=== PATIENT | male | born 1970 | race Caucasian/White ===

== ENCOUNTER 2025-03-03 10:57 | Emergency (ER) | payer BC, SELFPAY ==
--- NOTE | ~2025-03-03 | CT_ITS ---
EXAMINATION: CT ANGIOGRAM CHEST CT ANGIOGRAM ABDOMEN/PELVIS CLINICAL INFORMATION: Severe right upper quadrant abdominal pain, chest pain, shortness of breath and diaphoretic. COMPARISON: No prior. Correlation made with right upper quadrant abdomen ultrasound of same day. TECHNIQUE: Multiple axial images were obtained through the chest, abdomen, and pelvis after the administration of 100 mL of Omnipaque 350 intravenous contrast. Extensive vascular post-processing including two-dimensional and three-dimensional reformatted images were created and reviewed on an independent workstation. Multiplanar reformatted imaging was constructed from the axial data set. This CT examination was performed using dose optimization techniques as appropriate, variously including the following: *Automated exposure control *Adjustment of mA and/or kV according to patient size (this includes techniques or standardized protocols for targeted exams where dose is matched to indication/reason for exam; i.e. extremities or head) *Use of iterative reconstruction technique FINDINGS: CT ANGIOGRAM CHEST: VASCULAR: The thoracic aorta is normal in caliber and course. There is no acute aortic syndrome, or aneurysm. No significant atheromatous disease is present. Great vessels are patent bilaterally. There is a 2 vessel branching pattern. Normal enhancement of the pulmonary arteries. There is no PE. There is no right heart strain. The heart size is normal. There is no pericardial effusion. No significant coronary artery calcification is present. LUNGS: Lungs are clear bilaterally. There are no consolidations or abnormal opacities. There is no evidence of interstitial abnormality. Small airways are normal. Central airways are patent. There is no effusion or pneumothorax. MEDIASTINUM: Thyroid is partially imaged. There is a partially imaged 1.2 cm nodule in the right lobe. There is no lymphadenopathy or mass within the mediastinum. The esophagus has normal caliber and course. There is no mediastinal abnormality. CHEST WALL: There is no lymphadenopathy or mass. OSSEOUS STRUCTURES: There is no suspicious lytic or blastic bone lesion. Normal appearance. CT ANGIOGRAM ABDOMEN/PELVIS: VASCULAR: The abdominal aorta, and bilateral iliac arteries are normal in caliber and course. There is no aneurysm, dissection, or significant plaque is evident. There is no vascular stenosis or occlusion. The SMA is patent. The celiac axis is patent. Mild narrowing at the ostium without definite evidence of median arcuate ligament syndrome. The renal arteries are bilaterally patent. The inferior mesenteric artery is patent. The hypogastric arteries are patent bilaterally. The common femoral arteries are patent and normal bilaterally. LIVER, GALLBLADDER, AND BILIARY TREE: The liver is normal in size, shape, diffuse decreased attenuation consistent with fatty infiltration. No focal hepatic lesion or biliary ductal dilatation is present. The gallbladder is unremarkable with no evidence of radiopaque gallstones, gallbladder wall thickening, or obvious pericholecystic inflammatory changes. PANCREAS: Unremarkable. SPLEEN: Unremarkable. ADRENAL GLANDS: Unremarkable. KIDNEYS AND URETERS: Symmetric enhancement. The kidneys are normal in size, shape, and attenuation. No hydronephrosis, hydroureter, or calculi seen. No perinephric stranding. BLADDER: Unremarkable. GASTROINTESTINAL TRACT: The small and large bowel are unremarkable. The appendix is unremarkable. ABDOMINAL WALL: There is a small fat-containing right inguinal hernia. LYMPH NODES: No abnormal lymphadenopathy is present. PELVIC VISCERA: The prostate and seminal vesicles are unremarkable. OSSEOUS STRUCTURES: No suspicious lytic or blastic bone lesion. Normal appearance. CT/CT angio abdomen pelvis IMPRESSION: 1. Normal CT angiogram of the chest, abdomen and pelvis. There is no evidence of aortic aneurysm, acute aortic syndrome, arterial vascular stenosis or occlusion. There is no evidence of pulmonary embolism. 2. The lungs are clear without evidence of active disease. 3. Diffuse fatty infiltration of the liver. 4. Right thyroid nodule measuring 1.2 cm. 5. Remainder of the examination is normal. There is no definite imaging explanation for severe right upper quadrant pain. Electronically signed by: Arnulfo Lyn MD 03/03/2025 12:36 PM EDT
--- NOTE | ~2025-03-03 | US_ITS ---
EXAMINATION: US ABDOMEN LIMITED CLINICAL INFORMATION: Right upper quadrant pain. COMPARISON: None available. TECHNIQUE: Real-time imaging of the right upper quadrant abdominal viscera. FINDINGS: LIVER: Limited views of the liver demonstrate no abnormalities. GALLBLADDER: The gallbladder is physiologically distended without evidence of stones, sludge, polyps, wall thickening or pericholecystic fluid. US/US abdomen limited IMPRESSION: Limited ultrasound of the gallbladder only. No stones, wall thickening, or pericholecystic fluid is demonstrated. Electronically signed by: Ulises Swanson MD 03/03/2025 12:07 PM EDT
--- NOTE | 2025-03-03 11:05 | ECG_ITS ---
Test Reason : ABDOMINAL PAIN Blood Pressure : */* mmHG Vent. Rate : 75 BPM Atrial Rate : 75 BPM P-R Int : 172 ms QRS Dur : 112 ms QT Int : 370 ms P-R-T Axes : 39 -46 10 degrees QTcB Int : 413 ms Normal sinus rhythm Incomplete right bundle branch block Left anterior fascicular block Minimal voltage criteria for LVH, may be normal variant ( [place] product ) Abnormal ECG When compared with ECG of 29-Jun-2019 18:11, No significant change was found Referred By: Generic ED Physician Electronically Signed By: CHANCE PETERS
[2025-03-03 11:06] VITALS: BP 123/67; PULSE 72; RESP 22; TEMP 37.1; O2SAT 96; BMI 35.3
--- NOTE | 2025-03-03 11:18 | ED.GENADULT ---
HPI - General Adult General Chief complaint: Abdominal Pain Stated complaint: SEVERE UPPER RT ABD PAIN Time Seen by Provider: 03/03/25 11:01 Source: patient Mode of arrival: ambulatory Limitations: no limitations History of Present Illness ED Provider: APOLLO Strickland HPI narrative: 54-year-old male history of obesity, hyperlipidemia, atrial fibrillation, gastroparesis presents with severe right upper quadrant abdominal pain, stabbing pain, reports it started this morning. He has had pain like this before however not as severe. He reports pain is 8/10. He has sweating and diaphoretic due to pain. He does not feel well at all. He reports pain with deep breathing Denies nausea, vomiting, chest pain, headache, vision changes, dizziness, weakness. No recent illness. No sick contacts. Related Data Previous Rx's ?Medication ?Instructions ?Recorded ondansetron 4 mg disintegrating 4 mg PO Q6H PRN nausea and 03/03/25 tablet vomiting #14 tabs oxycodone 5 mg tablet 5 mg PO Q8H PRN pain #14 tabs 03/03/25 Allergies Allergy/AdvReac Type Severity Reaction Status Date / Time doxycycline (DOXYCYCLINE) Allergy Unknown STOMACH Verified 03/03/25 11:07 UPSET Review of Systems Review of Systems: Yes all other systems are reviewed and are negative [facility] Past Medical History Attestation statement: The following information was validated with the patient. Source: old records reviewed and nursing notes reviewed Social History Social History Smoked in Last 30 Days: No Use of substances other than those prescribed or required for medical reasons: No Advance Directives: No Advance Directives Information Provided: Yes Physical Exam ED Exam Exam: Appearance: Alert.? Oriented X3.+ appears extremely uncomfortable. Head: Normocephalic, atraumatic, no step-offs or deformities Eyes: Pupils equal, round and reactive to light.? Neck: Normal inspection.? Neck supple.? CVS: Normal heart rate and rhythm.? Pulses normal.? Respiratory: No respiratory distress.? Breath sounds normal.? Abdomen: Soft and+ tenderness to RUQ + murphys .? Skin: Skin warm and dry.? Normal skin color.? Normal skin turgor.? Extremities: No lower extremity edema.? No calf ttp. 5/5 strength to bilateral upper and lower extremities Neuro: Oriented X 3.? No motor deficit.? No sensory deficit. CN 2-12 intact Vital Signs: Vital Signs - 24 hr 03/03/25 16:58 Temperature 98.5 F Pulse Rate 70 Respiratory Rate 18 Blood Pressure 125/90 H Pulse Oximetry 95 Oxygen Delivery Method Room Air BMI result Body Mass Index 35.3 vss Course Reevaluation(s) Reevaluation #1: CBC unremarkable. Chemistry no acute findings needing acute intervention. Troponin negative. Lipase normal. Coags within normal limits. D-dimer negative. UA pending. Imaging pending Time: 12:32 Reevaluation #2: Repeat troponin negative. Patient not complaining of chest pain or shortness of breath. Still reporting mild right flank pain. CT a chest aorta with normal CT angiogram of the chest abdomen and pelvis. No evidence of aortic aneurysm, acute aortic syndrome. Arterial vascular stenosis or occlusion. There is no evidence of pulmonary embolism. The lungs are clear without evidence of active disease. Diffuse fatty infiltration of the liver. Right thyroid nodule measuring 1.2 cm. Remainder of the examination is normal. No definite imaging explanations for right upper quadrant pain. Abdominal ultrasound limited ultrasound of the gallbladder only no stones, wall thickening or pericholecystic fluid. UA clean Patient feeling better however still uncomfortable. I did have my attending Dr. Esqueda evaluate patient he thinks patient may have passed a kidney stone. Patient reports he is better he is no longer diaphoretic he is well appearing hemodynamically stable. Patient to be discharged home with oxycodone as well as Zofran. Educated patient on diagnosis and treatment plan, answered all question, patient verbalizes understanding. At this time patient will be discharged home, advised to return with new or worsening symptoms. Educated on worrisome signs and symptoms and when to return. At this time I feel comfortable discharge home. 03/03/2025 Dr. Esqueda's Attending Physician Note: HPI: 54-year-old male with a history of gastroparesis, atrial fibrillation, diabetes mellitus who presents emergency department for evaluation of right upper quadrant and right flank pain. Patient states at 06:20 hours he woke up with right upper quadrant pain he describes as a sharp pain. He states that the pain eventually resolved. 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 States the pain was 10/10 and felt similar to his kidney stone pain that he had in the past. Patient states that he had difficulty urinating but after urinating the pain did improve of persisted therefore came to the emergency department for evaluation. On presentation the patient stated his pain was 8/10, he appeared diaphoretic and unwell and he was brought back to the emergency department and evaluated by the physician critical care physician assistant Sasha Strickland. Exam: General: Awake, alert in no distress Head: Normocephalic, atraumatic EENT: PERRL, sclera and conjunctiva are normal, mouth with no erythema or exudates Neck: Supple, no adenopathy Lung: breath sounds symmetric, no wheezing, no rales and no rhonchi Chest: symmetric movement, nontender Heart: regular rate and rhythm, normal S1, S2 no murmurs or rubs Abdomen: soft, Mild to moderate right upper quadrant tenderness with a negative Urbano sign, no rebound, nondistended, normal bowel sounds Back: no vertebral tenderness, mild to moderate right CVA tenderness, no left CVA tenderness Extremities: no deformities, moves all extremities symmetrically, no edema Neuro: Awake, alert, oriented, normal speech, cranial nerves 2-12 intact, moves all extremities symmetrically Medical decision making: My independent interpretation the patient's laboratory evaluation is as follows: Normal CBC, normal PT/ INR and below detectable limits D-dimer. Glucose was elevated 129. liver tests were normal. Troponin was below detectable limits x2. urinalysis was positive for glucose only. Microscopic revealed 0-2 RBCs, 0-5 WBCs, no bacteria. CT angiogram chest, abdomen pelvis revealed no evidence for aortic aneurysm, dissection stenosis or occlusion. No pulmonary embolism. Right upper quadrant ultrasound revealed no gallbladder wall thickening, stones or pericholecystic fluid. The patient's negative workup is very reassuring. Based on the patient's clinical presentation, I suspect that he had a kidney stone that he passed and I did discuss this with the patient and the patient's significant other. The patient's pain significantly improved after treatment in the emergency department. He was advised to take Tylenol for pain. He was also prescribed oxycodone for pain not relieved by Tylenol and Zofran ODT for nausea and vomiting. He was given printed and verbal instructions and discharged home I, Dr. Rakesh Esqueda, personally evaluated the patient. I reviewed the APOLLO Strickland's documentation and I was available to supervise the management of the patient. I agree with the treatment and plan. Further, I agree with the controlled substance prescription as prescribed by APOLLO Strickland. My note reflects my personal findings on my history, exam and clinical impression. Time: 15:57 Medications Administered Discontinued Medications Generic Name Dose Route Start Last Admin Trade Name Alexa PRN Reason Stop Dose Admin Iohexol 100 ml 03/03/25 12:12 03/03/25 12:12 Iohexol 350 Mg/Ml 100 Ml Infus..Btl IV 03/03/25 12:13 100 ml ONCE ONE Administration Oxycodone HCl 5 mg 03/03/25 15:44 03/03/25 15:54 Oxycodone Hcl Immed Release 5 Mg Tablet PO 03/03/25 15:45 Not Given ONCE ONE Medical Decision Making Medical Decision Making [facility] Narrative: 1122 54 year old male presents w/ severe RUQ abd pain since this am PE TTP to right upper quadrant. / r lateral flank region. Patient appears diaphoretic, uncomfortable. Concerns for possible cholecystitis versus kidney stone. No peritonitic signs unlikely acute abdomen. Unlikely atypical presentation of ACS however will rule out. Less likely dissection however again will rule out. Will also rule out PE. Will rule out metabolic derangements, electrolyte abnormalities. Denies trauma therefore low suspicion for fractures, dislocations. No signs of pneumothorax. Plan labs, imaging, pain control Differential Diagnosis Differential Diagnoses: The differential diagnosis associated with the presentation includes (Concerns for possible cholecystitis versus kidney stone. No peritonitic signs unlikely acute abdomen. Unlikely atypical presentation of ACS however will rule out. Less likely dissection however again will rule out. Will also rule out PE. Will rule out metabolic derangements, electrolyte abnorma) Admission/Observation Consideration of admission/observation: Escalation of care including admission/observation considered Consult Healthcare Provider Management of the patient was discussed with: Transformer Repairer (Consulted cardiology) Cardiology Dr. Helton says aVL seems chronic, V2 looks new but there is no reciprocal change less likely [place] trend troponins. Lab Data [facility] Lab Attestation statement: I reviewed the patient's lab results. 03/03/25 11:25 03/03/25 11:25 Labs: Lab Results 03/03/25 03/03/25 03/03/25 Range/Units 11:25 11:31 13:13 WBC 8.2 (4.8-10.8) X10*3/uL RBC 5.27 (4.60-5.80) X10*6/uL Hgb 15.3 (14.0-18.0) g/dl Hct 45.5 (42.0-52.0) % MCV 86.3 (80.0-98.0) fL MCH 29.0 (27.0-33.0) pg MCHC 33.6 (31.0-36.0) g/dl RDW 13.5 (11.0-16.0) % Plt Count 259 (160-400) X10*3/uL MPV 10.1 (9.4-12.4) fL Immature Gran % (Auto) 0.2 (0.0-0.4) % Neut % (Auto) 61.8 (45-73) % Lymph % (Auto) 28.6 (20-40) % [place]offey % (Auto) 8.1 (2-11) % Eos % (Auto) 0.6 (0-4) % Baso % (Auto) 0.7 (0-2) % Lymph # (Auto) 2.3 (1.2-4.9) X10*3/uL [place]y # (Auto) 0.7 (0.1-1.2) X10*3/uL Eos # (Auto) 0.1 (0.0-0.4) X10*3/uL Baso # (Auto) 0.1 (0.0-0.2) X10*3/uL Abs Immat Gran (auto) 0.02 (0.00-0.03) X10*3/uL Absolute Neuts (auto) 5.1 (2.0-8.3) x10*3/uL Absolute Nucleated RBC 0.000 (0.0-0.012) X10*3/uL Nucleated RBC % (auto) 0.0 (0.0-0.2) /100WBC PT 11.3 (10.9-12.4) SEC INR 1.0 (0.9-1.1) D-Dimer High Sensitivty < 150 NG/ML Sodium 139 (135-145) mmol/L Potassium 3.9 (3.3-5.1) mmol/L Chloride 109 H (96-108) mmol/L Carbon Dioxide 24 (22-29) mmol/L Anion Gap 10 L (12-20) BUN 18 H (9-16) mg/dL Creatinine 0.85 (0.5-1.4) mg/dL Estim Creat Clear Calc 111.8 Estimated GFR > 60 POC Glucose 103 (60-115) mg/dL Random Glucose 129 H (60-115) mg/dL Calcium 9.1 (8.4-10.2) mg/dL Magnesium 2.0 (1.6-2.6) mg/dL Total Bilirubin 0.3 (0.0-1.0) mg/dL AST 23 (5-37) U/L ALT 29 (0-40) U/L Alkaline Phosphatase 58 (39-117) U/L Troponin I High Sens < 2.7 (<3.5-35.0) ng/L Total Protein 7.3 (6.5-8.0) g/dL Albumin 4.5 (3.5-5.0) g/dL Lipase 44 (8-78) U/L Urine Color Urine Appearance Urine pH (5.0-9.0) Ur Specific [place] (1.005-1.025) Urine Protein (Neg-Trace) mg/dL Urine Glucose (UA) (Negative) mg/dL Urine Ketones (Negative) mg/dL Urine Blood (Negative) Urine Nitrite (Negative) Ur Leukocyte Esterase (Negative) Urine RBC (0-2) /HPF Urine WBC (0-5) /HPF Ur Squamous Epith Cells (0-2) /HPF Urine Bacteria (None Seen) Hyaline Casts (0-2) /LPF 03/03/25 03/03/25 Range/Units 13:20 13:55 WBC (4.8-10.8) X10*3/uL RBC (4.60-5.80) X10*6/uL Hgb (14.0-18.0) g/dl Hct (42.0-52.0) % MCV (80.0-98.0) fL MCH (27.0-33.0) pg MCHC (31.0-36.0) g/dl RDW (11.0-16.0) % Plt Count (160-400) X10*3/uL MPV (9.4-12.4) fL Immature Gran % (Auto) (0.0-0.4) % Neut % (Auto) (45-73) % Lymph % (Auto) (20-40) % [place]y % (Auto) (2-11) % Eos % (Auto) (0-4) % Baso % (Auto) (0-2) % Lymph # (Auto) (1.2-4.9) X10*3/uL [place]y # (Auto) (0.1-1.2) X10*3/uL Eos # (Auto) (0.0-0.4) X10*3/uL Baso # (Auto) (0.0-0.2) X10*3/uL Abs Immat Gran (auto) (0.00-0.03) X10*3/uL Absolute Neuts (auto) (2.0-8.3) x10*3/uL Absolute Nucleated RBC (0.0-0.012) X10*3/uL Nucleated RBC % (auto) (0.0-0.2) /100WBC PT (10.9-12.4) SEC INR (0.9-1.1) D-Dimer High Sensitivty NG/ML Sodium (135-145) mmol/L Potassium (3.3-5.1) mmol/L Chloride (96-108) mmol/L Carbon Dioxide (22-29) mmol/L Anion Gap (12-20) BUN (9-16) mg/dL Creatinine (0.5-1.4) mg/dL Estim Creat Clear Calc Estimated GFR POC Glucose (60-115) mg/dL Random Glucose (60-115) mg/dL Calcium (8.4-10.2) mg/dL Magnesium (1.6-2.6) mg/dL Total Bilirubin (0.0-1.0) mg/dL AST (5-37) U/L ALT (0-40) U/L Alkaline Phosphatase (39-117) U/L Troponin I High Sens < 2.7 (<3.5-35.0) ng/L Total Protein (6.5-8.0) g/dL Albumin (3.5-5.0) g/dL Lipase (8-78) U/L Urine Color Yellow Urine Appearance Clear Urine pH 6.0 (5.0-9.0) Ur Specific [place] >= 1.030 H (1.005-1.025) Urine Protein Negative (Neg-Trace) mg/dL Urine Glucose (UA) >=1000 H (Negative) mg/dL Urine Ketones Negative (Negative) mg/dL Urine Blood Negative (Negative) Urine Nitrite Negative (Negative) Ur Leukocyte Esterase Negative (Negative) Urine RBC 0-2 (0-2) /HPF Urine WBC 0-5 (0-5) /HPF Ur Squamous Epith Cells 0-2 (0-2) /HPF Urine Bacteria None Seen (None Seen) Hyaline Casts 0-2 (0-2) /LPF Independent Interpretation I performed an independent interpretation of an: EKG (Normal sinus rhythm Incomplete right bundle branch block Left anterior fascicular block Minimal voltage criteria for LVH, may be normal variant ( [place] product ) Abnormal ECG When compared with ECG of 29-Jun-2019 18:11, No significant change was found Referred By: Generic ED Physician ) and CT Scan Radiology Impression Discussion of test interpretation with radiology: I have reviewed the radiologist's reading. Independent Historian Clinical information obtained from an independent historian. History obtained from or confirmed by: Spouse Critical Care Time Critical Care Time Critical Care Time: Yes Total Critical Care Time: 35 Attestation: I attest to this time spent taking care of the patient, obtaining history, physical, reviewing labs, imaging, treatment of patients condition +/- specialist/hospitalist consult +/- procedure Discharge Plan Discharge Clinical Impression: Abdominal pain, RUQ, Renal colic on right side Patient Disposition: Home, Self-Care Instructions: Abdominal Pain (ED) Additional Instructions: Take your medications as prescribed. If you were prescribed antibiotics today, it is important that you take your medication to their entirety, do not skip any doses, do not finish them early. Follow-up with your primary care provider this week. Return to the emergency department with new or worsening symptoms. Such as fevers, chills, chest pain, shortness of breath, nausea, vomiting, dizziness, headache, vision changes, lethargy In case of emergency call 911 A narcotic has been sent to your pharmacy please take this as prescribed. Do not take more than the prescribed dose. Narcotic medications can cause addiction. Please do not mix them with alcohol. Do not take them while driving or operating machinery. Do not take them with any other narcotics. Do not share them with friends or family. They can cause constipation. Take them only for severe pain. CT/CT angio chest aorta IMPRESSION: 1. Normal CT angiogram of the chest, abdomen and pelvis. There is no evidence of aortic aneurysm, acute aortic syndrome, arterial vascular stenosis or occlusion. There is no evidence of pulmonary embolism. 2. The lungs are clear without evidence of active disease. 3. Diffuse fatty infiltration of the liver. 4. Right thyroid nodule measuring 1.2 cm. 5. Remainder of the examination is normal. There is no definite imaging explanation for severe right upper quadrant pain. US/US abdomen limited IMPRESSION: Limited ultrasound of the gallbladder only. No stones, wall thickening, or pericholecystic fluid is demonstrated. Prescriptions: New oxycodone 5 mg tablet 5 mg PO Q8H PRN (Reason: pain) Qty: 14 0RF Rx Instructions: Partial Fill upon patient request. ondansetron 4 mg tablet,disintegrating 4 mg PO Q6H PRN (Reason: nausea and vomiting) Qty: 14 0RF Referrals: Physician,Unknown J [Primary Care Provider, Medical] - 1 week Interventions: ED Discharge Assessment Last Done: 03/03/25 16:58 Discharge Date/Time: 03/03/25 16:59 Print Language: French
--- NOTE | 2025-03-03 11:30 | ECG_ITS ---
Test Reason : CP Blood Pressure : */* mmHG Vent. Rate : 73 BPM Atrial Rate : 73 BPM P-R Int : 120 ms QRS Dur : 112 ms QT Int : 378 ms P-R-T Axes : 24 -49 18 degrees QTcB Int : 416 ms Normal sinus rhythm Incomplete right bundle branch block Left anterior fascicular block Abnormal ECG When compared with ECG of 03-Mar-2025 11:16, No significant change was found Referred By: Rakesh Esqueda Electronically Signed By: CAHNCE PETERS
[2025-03-03 11:39] VITALS: BP 137/82; PULSE 73; RESP 16; O2SAT 96
--- NOTE | 2025-03-03 11:39 | PC.NURSE ---
Pt BIBA for reports of RUQ pain pt describes as sharp 9/10 radiating to the left side of abdomen. Pt is alert/oriented and diaphoretic on arrival. #20 placed to RAC, labs obtained and sent. EKG obtained, provider at bedside.
[2025-03-03 11:40] LABS: MANUAL DIFF FLAG NO
[2025-03-03 11:50] LABS: INTERNATIONAL NORM RATIO 1.0 (0.9-1.1); Prothrombin Time 11.3 SEC (10.9-12.4)
[2025-03-03 11:51] LABS: Hematocrit 45.5 % (42.0-52.0); Hemoglobin 15.3 g/dl (14.0-18.0); Imm Gran Abs Auto 0.02 X10*3/uL (0.00-0.03); Imm Gran Pct Auto 0.2 % (0.0-0.4); Lymphocytes Absolute Auto 2.3 X10*3/uL (1.2-4.9); Mean Corpuscular HGB Conc 33.6 g/dl (31.0-36.0); Mean Corpuscular Hemoglobin 29.0 pg (27.0-33.0); Mean Corpuscular Volume 86.3 fL (80.0-98.0); NRBC Abs Auto 0.000 X10*3/uL (0.0-0.012); NRBC Pct Auto 0.0 /100WBC (0.0-0.2); Platelet Count 259 X10*3/uL (160-400); Red Blood Count 5.27 X10*6/uL (4.60-5.80); White Blood Count 8.2 X10*3/uL (4.8-10.8)
[2025-03-03 11:56] LABS: D Dimer High Sensitivity < 150 NG/ML
[2025-03-03 12:00] LABS: Alanine Aminotransferase 29 U/L (0-40); Albumin Level 4.5 g/dL (3.5-5.0); Alkaline Phosphatase 58 U/L (39-117); Anion Gap 10 (12-20); Aspartate Amino Transferase 23 U/L (5-37); Blood Urea Nitrogen 18 mg/dL (9-16); Calcium 9.1 mg/dL (8.4-10.2); Carbon Dioxide 24 mmol/L (22-29); Chloride 109 mmol/L (96-108); Creatinine Clr Calc Pharmacy 111.8; Estimated Glomerular Filt Rate > 60; Lipase 44 U/L (8-78); Magnesium 2.0 mg/dL (1.6-2.6); Potassium 3.9 mmol/L (3.3-5.1); Sodium 139 mmol/L (135-145); Total Protein 7.3 g/dL (6.5-8.0)
[2025-03-03 12:09] LABS: Troponin-I High Sensitivity < 2.7 ng/L (<3.5-35.0)
[2025-03-03] MEDS: iohexoL 350 MG/ML 100 ML INFUS..BTL IV (12:12)
--- OUTSIDE RECORDS SUMMARY | 2025-03-03 12:24 | XMS_ITS | Clinical Summary ---
Author Organization [address] Address [address] [place] [address] Phone Care Team Providers Care Hydrate Thickener Operator Name Role Phone Earl Campos Primary Care Provider [phone] Allergies Active Allergy Reactions Criticality Noted Date Comments Doxycycline Nausea And Vomiting 04/22/2006 Pt had severe epigastric pains 04/20 Doxycycline + [id number] Medications albuterol 2.5 mg /3 mL (0.083 %) nebulizer solution Take 1 Vial by nebulization every 6 hours as needed for Wheezing or Cough 4 Active blood-glucose sensor (FREESTYLE ALEXANDRA 3 SENSOR MISC) 1 Each by Does not apply route See Admin Instructions. 4 Active blood glucose control high,low (FreeStyle Control) solution Apply 1 Drop topically as needed for Other. To use when open each new bottle of strips 3 Active blood sugar diagnostic (FreeStyle Lite Strips) test strip Use to test blood sugar three times daily 3 Active FREESTYLE LANCETS MISC 1 Each by Does not apply route 3 times daily. 3 Active albuterol HFA (PROAIR HFA ; PROVENTIL HFA ; VENTOLIN HFA) 90 mcg/actuation inhaler Inhale 2 Puffs into the lungs every 4 hours as needed for Cough or Wheezing. 3 Active blood-glucose meter misc 1 Each by Does not apply route as needed for Other for up to 360 days. 9 Active SUMAtriptan succinate 6 mg/0.5 mL syringe Inject 6 mg into the skin as needed (migraine). May repeat in 1 hr 5 Active Jardiance 25 mg tablet TAKE 1 TABLET BY MOUTH EVERY DAY 90 tablet 1 5 Active sildenafiL (VIAGRA) 100 mg tablet Take 1 tablet (100 mg total) by mouth 1 (one) time each day if needed for erectile dysfunction. 12 tablet 3 5 11/12/19 26 Active Active Problems Problem Noted Date Diagnosed Date Ascending aorta enlargement ([facility] V24) 2022 Hepatic steatosis 05/12/2023 Pulmonary nodules 05/12/2023 Metabolic syndrome 08/25/2022 Diabetic gastroparesis ([facility] V24, [facility] V28 ) 05/12/2022 Atrial fibrillation with RVR ([facility] V24, [facility] V28) 03/24/2022 Overview (06/06/2024): Last Assessment & Plan: New onset Afib RVR while hospitalized, he was asymptomatic. Was started on Dilt states he doesn't feel well on this causes, headaches, nausea and slight lightheadedness. We talked about moving this to the PM or bedtime to see if this helps however he wants to be off the Diltiazem all together and does not wish to try moving the time. I reviewed his HR may increase or BP and may end up requiring Dilt or a different agent and he understands this. Therefore he will d/c Dilt and we will complete a 14 day ROCT to look for Afib and see what his Hrs are. He may require a small dose of Dilt or can try BB as well. CHADS VASC 1 for DM, decision was made in the hospital no anticoagulation at this time. Will see what ROCT shows. Emphysematous gastritis 03/24/2022 Migraine headache without aura 07/30/2020 Type 2 diabetes mellitus wit hout complication, without long-term current use of insulin ([facility] V24, [facility] V28) 04/29/2012 Degenerative disc disease, lumbar 10/21/2010 Lumbar facet arthropathy 10/21/2010 Lumbar herniated disc 10/21/2010 Class 2 obesity due to exces s calories without serious comorbidity with body mass index (BMI) of 35.0 to 35.9 in adult Immunizations Name Administration Dates Next Due H1N1 Inj Preservative Free 04/30/2009 Influenza Quadravalent, MDCK , 0.5ml, preservative free (Flucelvax) 6mo and older 02/26/2022,03/11/2021,03/06/2020 Influenza trivalent, with pr eservative (Fluzone; Afluria) 6mo and older 04/03/2012,04/19/2010,04/21/2008,04/19 Influenza, Unspecified 02/17/2023 Pneumococcal polysaccharide 23 valent (Pneumovax 23) 2yo and older 01/25/2014 Tdap Tetanus diptheria acell ular pertussis (Boostrix; Adacel) 7yo and older 11/17/2018,10/29/2018,04/14/2007 Surgical History Surgery Date Site/Laterality Comments TONSILLECTOMY 11/2004 PROCEDURE: HISTORICAL TONSILLECTOMY OTHER SURGICAL HISTORY PROCEDURE: AR REPAIR PRIMARY OPEN/PRQ RUPTURED ACHILLES TENDON COLONOSCOPY 07/15/2010 PROCEDURE: HISTORICAL COLONOSCOPY; COMMENT: normal; repeat in five years COLONOSCOPY 02/03/2019 PROCEDURE: HISTORICAL COLONOSCOPY; COMMENT: dr. elena 10 years OTHER SURGICAL HISTORY 04/15/2022 PROCEDURE: UPPER GI ENDOSCOPY, REMOVE LESION; COMMENT: kassy -large amount of food in the stomach otherwise normal exam Medical History Medical History Date Comments Unspecified asthma(493.90) 09/29/2005 DX:Un specified asthma(493.90) Morbid obesity (CMS/HCC V24, CMS/HCC V28) 04/22/2006 DX:Morbid obesity ([facility]) Migraine with aura, without mention of intractable migraine without mention of status migrainosus 04/22/2006 DX:Migraine with aura, w ithout mention of intractable migraine without mention of status migrainosus Type II or unspecified type diabetes mellitus without mention of complication, uncontrolled 04/29/2012 DX:Type II or unspecified t ype diabetes mellitus without mention of complication, uncontrolled Family History Medical History Relation Name Comments Hypertension Father Diabetes Mother Sister Breast cancer Other pat uncle Relation Name Status Comments Brother Alive Daughter Alive Father Alive hypertension, c olon cancer age 48 pacemaker Mother Alive diabetes Other pat uncle Alive Sister Alive diabetes Social History Tobacco Use Types Packs/Day Years Used Date Smoking Tobacco: Never Smokeless Tobacco: Never Tobacco Cessation:Counseling Given: Not Answered Alcohol Use Standard Drinks/Week Comments No 0 (1 standard drink = 0.6 oz pur e alcohol) none Sex and Gender Information Value Date Recorded Sex Assigned at Not on file Legal Sex Male 6:18 PM EST Gender Identity Not on file Sexual Orientation Not on file 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 Not on file Not on file Obstetrics History Last Filed Vital Signs Vital Sign Reading Time Taken Comments Blood Pressure 132/79 11/11/2024 2:35 PM EDT Pulse 69 11/11/2024 2:35 PM EDT Temperature 36.2 C (97.1 F) 07/26/2024 1:45 PM EST Respiratory Rate 15 07/26/2024 1:45 PM EST Oxygen Saturation 94% 07/02/2023 1:2 2 PM EST at rest, room air Inhaled Oxygen Concentration - - Weight 102 kg (224 lb) 11/11/2024 2:35 PM EDT Height 170.2 cm (5' 7 ) 11/11/2024 2:35 PM EDT Body Mass Index 35.08 11/11/2024 2:35 PM EDT Plan of Treatment Upcoming Encounters Date Type Department Care Team (Late st Contact Info) Description 05/19/2025 3:30 PM EST Office Visit Adult Medicine [address] [phone] Earl Campos PA [address] [place] [phone] Health Maintenance Due Date Last Done Comments Hepatitis B Vaccines (1 of 3 - 19+ 3-dose series) 1988 Pneumococcal Vaccine: 50+ Years (2 of 2 - PCV) 01/25/2015 01/25/2014 Zoster Vaccines (1 of 2) 2019 HIV Screening 05/24/2022 Social Influencers of Health Screening 05/24/2022 Depression Screening 06/15/2024 Diabetes: Annual Foot Exam 11/05/2024 11/06/2023 COVID-19 Vaccine ( season) 2025 05/06/2022, 05/14/2021, 09/09/2020, Additional history exists Influenza Vaccine (#1) 2025 , 03/13/2023, 02/17/2023, Additional history exists Diabetes: Blood Sugar Control Test (HGBA1C) 05/14/2025 11/11/2024, 05/13/2024, 11/06/2023 Diabetes: Annual Retina Eye Exam 07/14/2025 07/14/2024 Diabetes: Annual Urine Albumin-Creatinine Ratio (uACR) 11/11/2025 11/11/2024, 05/13/2024, 04/16/2023 Diabetes: Annual GFR (Glomerular Filtration Rate) 11/11/2025 11/11/2024, 05/13/2024, 11/06/2023 DTaP,Tdap,and Td Vaccines (4 - Td or Tdap) 11/17/2028 11/17/2018, 10/29/2018, 04/14/2007 Colorectal Cancer Screening: Colonoscopy 02/03/2029 02/03/2019 Cholesterol Screening (Lipid Panel) 11/11/2029 11/11/2024, 05/13/2024, 11/06/2023 RSV Immunization Adult Patients (1 - 1-dose 75+ series) 2044 Hepatitis C Screening Completed 08/18/2022 HIB Vaccines Aged Out No longer eligi ble based on patient's age to complete this topic HPV Vaccines Aged Out No longer eligi ble based on patient's age to complete this topic Hepatitis A Vaccines Aged Out No long er eligible based on patient's age to complete this topic IPV Vaccines Aged Out No longer eligi ble based on patient's age to complete this topic MMR Vaccines Aged Out No longer eligi ble based on patient's age to complete this topic Meningococcal ACWY Vaccine Aged Out N o longer eligible based on patient's age to complete this topic Meningococcal B Vaccine Aged Out No l onger eligible based on patient's age to complete this topic RSV Immunization Patients Under 20 months Aged Out No longer eligible based on patient's age to complete this topic Varicella Vaccines Aged Out No longer eligible based on patient's age to complete this topic Procedures Procedure Name Priority Date/Time Associated Diagnosis Comments MICROALBUMIN CREATININE URINE RATIO Routine 11/11/2024 3:35 PM EDT Other male erectile dysfunction Routine general medical examination at a health care facility COMPREHENSIVE METABOLIC PANEL Routine 11/11/2024 3:35 PM EDT Other male erectile dysfunction Routine general medical examination at a health care facility HEMOGLOBIN A1C Routine 11/11/2024 3:35 PM EDT Other male erectile dysfunction Routine general medical examination at a health care facility LIPID PANEL WITH REFLEX TO DIRECT LDL Routine 11/11/2024 3:35 PM EDT Other male erectile dysfunction Routine general medical examination at a health care facility DIABETES FOOT EXAM Routine 11/06/2023 HEPATITIS C SCREENING Routine 08/18/2022 COLONOSCOPY Routine 02/03/2019 from Last 3 Months or Most Recently Relevant to Health Maintenance Results * Lipid panel with reflex to direct LDL (11/11/2024 3:35 PM EDT) Cholesterol 146 0 - 200 mg/dL LAB CHEMISTRY METHOD 11/11/2024 6:45 PM EDT [facility] Triglycerides 130 0 - 150 mg/dL LAB CHEMISTRY METHOD 11/11/2024 6:45 PM EDT [facility] HDL 40 >=40 mg/dL LAB CHEMISTRY METHOD 11/11/2024 6:45 PM EDT [facility] LDL Calculated 80 0 - 100 mg/dL LAB CHEMISTRY METHOD 11/11/2024 6:45 PM EDT [facility] VLDL Cholesterol Denzel 26 mg/dL LAB CHEMISTRY METHOD 11/11/2024 6:45 PM EDT [facility] Non HDL Chol. (LDL+VLDL) 106 <145 mg/dL LAB CHEMISTRY METHOD 11/11/2024 6:45 PM EDT [facility] Chol/HDL Ratio 3.7 0.0 - 4.4 LAB CHEMISTRY METHOD 11/11/2024 6:45 PM EDT [facility] Blood Venous blood specimen / Unknown Venipuncture / Unknown 11/11/2024 3:35 PM EDT 11/11/2024 3:35 PM EDT Earl BUSTILLOS LAB BLOOD ORDERABLES Isabel l Result Performing Organization Address City/[facility]/ZIP Co de Phone Number [facility] [address] [place] [address], [place] [phone] * Microalbumin creatinine urine ratio (11/11/2024 3:35 PM EDT) Creatinine, Urine 69.0 mg/dL LAB CHEMISTRY METHOD 11/11/2024 7:17 PM EDT [facility] Microalb, Ur <5.0 0.0 - 29.0 mg/L LAB CHEMISTRY METHOD 11/11/2024 7:17 PM EDT [facility] Microalb/Creat Ratio <7 <30 mg/g creat LAB CHEMISTRY METHOD 11/11/2024 7:17 PM EDT [facility] Urine Urine specimen obtained by clean catch procedure / Unknown Non-blood Collection / Unknown 11/11/2024 3:35 PM EDT 11/11/2024 3:35 PM EDT Earl BUSTILLOS LAB URINE ORDERABLES Isabel l Result [facility] [address] [place] [address], [place] [phone] * (ABNORMAL) Hemoglobin A1c (11/11/2024 3:35 PM EDT) Hemoglobin A1C 7.0(H) <6.5 % LAB CHEMISTRY METHOD 11/11/2024 8:36 PM EDT [facility] Mean Bld Glu Estim. 154 mg/dL LAB CHEMISTRY METHOD 11/11/2024 8:36 PM [facility] Blood Venous blood specimen / Unknown Venipuncture / Unknown 11/11/2024 3:35 PM EDT 11/11/2024 3:35 PM EDT Earl BUSTILLOS LAB BLOOD ORDERABLES Isable orta Result [facility] [address] [place] [address], [place] [phone] * Comprehensive metabolic panel (11/11/2024 3:35 PM EDT) Sodium 139 133 - 145 mmol/L LAB CHEMISTRY METHOD 11/11/2024 6:45 PM [facility] Potassium 4.7 3.5 - 5.5 mmol/L LAB CHEMISTRY METHOD 11/11/2024 6:45 PM [facility] Chloride 106 96 - 110 mmol/L LAB CHEMISTRY METHOD 11/11/2024 6:45 PM [facility] CO2 27 21 - 32 mmol/L LAB CHEMISTRY METHOD 11/11/2024 6:45 PM [facility] Anion Gap 6 3 - 11 LAB CHEMISTRY METHOD 11/11/2024 6:45 PM [facility] Glucose 97 70 - 100 mg/dL LAB CHEMISTRY METHOD 11/11/2024 6:45 PM [facility] BUN 20 5 - 25 mg/dL LAB CHEMISTRY METHOD 11/11/2024 6:45 PM [facility] Creatinine 0.92 0.70 - 1.30 mg/dL LAB CHEMISTRY METHOD 11/11/2024 6:45 PM [facility] eGFR 98 >=60 mL/min/1. 73m2 LAB CHEMISTRY METHOD 11/11/2024 6:45 PM EDT [facility] Comment:Calculation based on the Chronic Kidney Disease Epidemiology Collaboration (CKD-EPI) equation refit without adjustment for race. BUN/Creatinine Ratio 21.7 LAB CHEMISTRY METHOD 11/11/2024 6:45 PM T [facility] Calcium 9.4 8.5 - 10.5 mg/dL LAB CHEMISTRY METHOD 11/11/2024 6:45 PM [facility] AST (SGOT) 20 10 - 42 unit/L LAB CHEMISTRY METHOD 11/11/2024 6:45 PM [facility] ALT (SGPT) 37 10 - 60 unit/L LAB CHEMISTRY METHOD 11/11/2024 6:45 PM [facility] Alkaline Phosphatase 65 42 - 121 unit/L LAB CHEMISTRY METHOD 11/11/2024 6:45 PM [facility] Total Protein 7.5 6.0 - 8.0 g/dL LAB CHEMISTRY METHOD 11/11/2024 6:45 PM [facility] Albumin 4.1 3.2 - 5.0 g/dL LAB CHEMISTRY METHOD 11/11/2024 6:45 PM [facility] Total Bilirubin 0.4 0.0 - 1.4 mg/dL LAB CHEMISTRY METHOD 11/11/2024 6:45 PM [facility] Blood Venous blood specimen / Unknown Venipuncture / Unknown 11/11/2024 3:35 PM EDT 11/11/2024 3:35 PM EDT Earl BUSTILLOS LAB BLOOD ORDERABLES Isabel l Result [facility] [address] [place] [address], [place] [phone] * Diabetes Foot Exam (11/06/2023) Pathologist [facility] Diabetes: Annual Foot Exam Abstracted us Historical Provider HEALTH MAINTENANCE Final Result * Hepatitis C Screening (08/18/2022) Hepatitis C Screening Abstracted Historical Provider HEALTH MAINTENANCE Final Result * Colonoscopy (02/03/2019) Colonoscopy No Interpretation , Abstracted Anatomical Region Laterality Modality Other Historical Provider HEALTH MAINTENANCE Final Result from Last 3 Months or Most Recently Relevant to Health Maintenance Insurance [facility] Advance Directives Documents on File Type Date Recorded Patient Makeup Artistry Instructor Expl anation Health Care Decision (hx) 02/06/2022 AD MARTEL DIRECTIVE Health Care Decision (hx) 02/06/2022 AD MARTEL DIRECTIVE Health Care Decision (hx) 02/06/2022 AD MARTEL DIRECTIVE Health Care Decision (hx) 02/06/2022 AD MARTEL DIRECTIVE Health Care Decision (hx) 02/06/2022 AD MARTEL DIRECTIVE Health Care Decision (hx) 02/06/2022 AD MARTEL DIRECTIVE Health Care Decision (hx) 02/06/2022 AD MARTEL DIRECTIVE Health Care Decision (hx) 02/06/2022 AD MARTEL DIRECTIVE Health Care Decision (hx) 02/06/2022 AD MARTEL DIRECTIVE Health Care Decision (hx) 02/06/2022 AD MARTEL DIRECTIVE Care Teams Hydrate Thickener Operator Relationship Specialty Start Date End Date Earl Campos PA [address] [place] [id number] PCP - General Internal Medicine 07/26/24
[2025-03-03 12:37] VITALS: BP 132/70; PULSE 73; RESP 17; TEMP 36.6; O2SAT 95
[2025-03-03 13:24] LABS: Glucose, Whole Blood 103 mg/dL (60-115)
[2025-03-03 14:05] LABS: Appearance Urine Clear; Glucose Urine UA >=1000 mg/dL (Negative); PH 6.0 (5.0-9.0); Specific Gravity - Urine >= 1.030 (1.005-1.025); UMIC TRIGGER UACC YES
[2025-03-03 14:07] LABS: Troponin-I High Sensitivity < 2.7 ng/L (<3.5-35.0)
[2025-03-03 16:58] VITALS: BP 125/90; PULSE 70; RESP 18; TEMP 36.9; O2SAT 95
== END 2025-03-03 16:59 | disposition home or self-care (01) ==
PROVIDERS: Physician Assistant; Emergency Provider Emergency Medicine Emergency Medical Services
DX: R10.11 Right upper quadrant pain (principal); R10.811 Right upper quadrant abdominal tenderness; R07.1 Chest pain on breathing; E11.9 Type 2 diabetes mellitus without complications; R06.02 Shortness of breath; R07.89 Other chest pain; I45.10 Unspecified right bundle-branch block; Z79.899 Other long term (current) drug therapy
CPT/HCPCS: 36415; 71275; 74174; 76705; 80053; 81001; 81003; 82947; 83690; 83735; 84484; 85025; 85379; 85610; 93005; 99285; Q9967

== ENCOUNTER → 2025-03-03 11:05 | Outpatient (BNV) | payer BC, SELFPAY | PROVIDERS: Emergency Provider Emergency Medicine Emergency Medical Services; Visit Provider Internal Medicine | DX: I45.2 Bifascicular block (principal) | CPT/HCPCS: 93010 ==

== ENCOUNTER → 2025-03-03 11:17 | Outpatient (BNV) | payer BC, SELFPAY | PROVIDERS: Emergency Provider Emergency Medicine Emergency Medical Services; Visit Provider Radiology Diagnostic Radiology | DX: R07.9 Chest pain, unspecified (principal); R06.02 Shortness of breath; R61 Generalized hyperhidrosis; K76.0 Fatty (change of) liver, not elsewhere classified; E04.1 Nontoxic single thyroid nodule; R10.11 Right upper quadrant pain | CPT/HCPCS: 71275; 74174; 76705 ==